=== PATIENT | male | born 1965 | race Caucasian/White ===

== ENCOUNTER 2021-04-17 07:46 | Day surgery (SDC) | payer BC ==
[2021-04-17] MEDS ORDERED: cefOXitin 2 GM in Premix Bag 1 BAG IV ONE (08:24)
[2021-04-17] MEDS ORDERED: Acetaminophen 1,000 MG in Premix Bag 1 BAG IV ONE (08:26)
[2021-04-17] MEDS ORDERED: Pregabalin 75 MG Cap PO ONE (08:26)
[2021-04-17] MEDS ORDERED: Lactated Ringers 1,000 ML IV SCH (08:30)
[2021-04-17] MEDS ORDERED: Rocuronium Bromide 50 MG/5 ML Syringe ONE ×2 (09:21→12:05)
[2021-04-17] MEDS ORDERED: Lidocaine 2% 5 ML SDV ONE (09:21)
[2021-04-17] MEDS ORDERED: Propofol 200 MG/20 ML SDV ONE (09:21)
[2021-04-17] MEDS ORDERED: Sugammadex Sodium 200 MG/2 ML VIAL ONE (09:21)
[2021-04-17] MEDS ORDERED: fentaNYL 100 MCG/2 ML SDV ONE (09:21)
[2021-04-17] MEDS ORDERED: Ondansetron 4 MG/2 ML SDV ONE (09:21)
[2021-04-17] MEDS ORDERED: Midazolam 1 MG/ML 2 ML SDV ONE (09:21)
[2021-04-17] MEDS ORDERED: Dexamethasone 4 MG/ML 5 ML MDV ONE (09:21)
[2021-04-17] MEDS ORDERED: Octyl 2-Cyanoacrylate 1 Tube ONE (09:28)
[2021-04-17] MEDS ORDERED: Bupivacaine 0.5% 10 ML SDV ONE (09:28)
--- NOTE | 2021-04-17 09:38 | PCM.PREANE ---
Preanesthetic Assessment - Procedure Proposed Procedure: Bhupinder Inguinal Hernia repair - Anesthesia/Transfusion/Family Hx Anesthesia History: Prior Anesthesia Without Reaction Family History of Anesthesia Reaction: No Transfusion History: No Prior Transfusion(s) - Review of Systems General: No Symptoms Pulmonary: No Symptoms (Quit smoking 2001) Cardiovascular: No Symptoms (HLD, HTN, CAD s/p CABG, S/P AO valvle replace) Gastrointestinal: No Symptoms (GERD well controlled) Neurological: No Symptoms Other: Reports: None - Physical Assessment NPO Status Date: 04/16/21 NPO Status Time: 07:30 (Solids, >8hr Liq) Height: 5 ft 9 in Weight: 93.894 kg (Obesity) ASA Class: 2 Mental Status: Alert & Oriented x3 Airway Class: Mallampati = 2 Dentition: Reports: Missing Tooth/Teeth Thyro-Mental Finger Breadths: 3 Mouth Opening Finger Breadths: 3 ROM/Head Extension: Full Lungs: Clear to Auscultation, Normal Respiratory Effort Cardiovascular: Regular Rate, Regular Rhythm - Allergies Allergies/Adverse Reactions: Allergies Allergy/AdvReac Type Severity Reaction Status Date / Time No Known Allergies Allergy Verified 04/11/21 09:52 - Acknowledgements Anesthesia Type Planned: General Anesthesia Pt an Appropriate Candidate for the Planned Anesthesia: Yes Alternatives and Risks of Anesthesia Discussed w Pt/Guardian: Yes Pt/Guardian Understands and Agrees with Anesthesia Plan: Yes PreAnesthesia Questionnaire HEENT History: Reports: Other (See Below) Other HEENT History: wears glasses Cardiovascular History: Reports: High Cholesterol Respiratory History: Reports: None Gastrointestinal History: Reports: None Genitourinary History: Reports: None Musculoskeletal History: Reports: None Neurological History: Reports: None Psychiatric History: Reports: None Endocrine/Metabolic History: Reports: None Hematologic History: Reports: None Immunologic History: Reports: None Oncologic (Cancer) History: Reports: None Dermatologic History: Reports: None - Past Surgical History Head Surgeries/Procedures: Reports: None HEENT Surgical History: Reports: None Cardiovascular Surgical History: Reports: None Respiratory Surgical History: Reports: None GI Surgical History: Reports: Appendectomy Male Surgical History: Reports: None Endocrine Surgical History: Reports: None Neurological Surgical History: Reports: None Musculoskeletal Surgical History: Reports: None Oncologic Surgical History: Reports: None Dermatological Surgical History: Reports: None - SUBSTANCE USE Tobacco Use Status *Q: Never Tobacco User Recreational Drug Use History: No - HOME MEDS Home Medications: Home Meds Rosuvastatin [Crestor] 20 mg PO DAILY 04/11/21 [History] - CURRENT (IN HOUSE) MEDS Current Meds: Current Medications Lactated Ringer's (Ringers, Lactated) 1,000 mls @ 125 mls/hr IV ASDIRECTED ASMITA Discontinued Medications Dexamethasone (Dexamethasone 4 Mg/Ml 5 Ml Mdv) Confirm Administered Dose 20 mg .ROUTE .STK-MED ONE Stop: 04/17/21 09:22 Fentanyl (Fentanyl 100 Mcg/2 Ml Sdv) Confirm Administered Dose 100 mcg .ROUTE .STK-MED ONE Stop: 04/17/21 09:22 Cefoxitin Sodium 2 gm/ Premix 50 mls @ 100 mls/hr IV ONETIME ONE Stop: 04/17/21 08:53 Acetaminophen 1,000 mg/ Premix 100 mls @ 400 mls/hr IV ONCALL ONE Stop: 04/17/21 08:40 Lidocaine (Lidocaine 2% 5 Ml Sdv) Confirm Administered Dose 5 ml .ROUTE .STK-MED ONE Stop: 04/17/21 09:22 Midazolam HCl (Midazolam 1 Mg/Ml 2 Ml Sdv) Confirm Administered Dose 2 mg .ROUTE .STK-MED ONE Stop: 04/17/21 09:22 Ondansetron HCl (Ondansetron 4 Mg/2 Ml Sdv) Confirm Administered Dose 4 mg .ROUTE .STK-MED ONE Stop: 04/17/21 09:22 Pregabalin (Pregabalin 75 Mg Cap) 150 mg PO ONETIME ONE Stop: 04/17/21 08:27 Propofol (Propofol 200 Mg/20 Ml Sdv) Confirm Administered Dose 200 mg .ROUTE .STK-MED ONE Stop: 04/17/21 09:22 Rocuronium [place] (Rocuronium [place] 50 Mg/5 Ml Syringe) Confirm Administered Dose 50 mg .ROUTE .STK-MED ONE Stop: 04/17/21 09:22 Sugammadex Sodium (Sugammadex Sodium 200 Mg/2 Ml Vial) Confirm Administered Dose 200 mg .ROUTE .STK-MED ONE Stop: 04/17/21 09:22
[2021-04-17] MEDS ORDERED: Naloxone 0.4 MG/ML SDV IVPUSH PRN (10:24)
[2021-04-17] MEDS ORDERED: Metoclopramide 10 MG/2 ML SDV IVPUSH PRN (10:24)
[2021-04-17] MEDS ORDERED: Albuterol 0.083% 2.5 MG/3 ML Neb Soln NEB PRN (10:24)
[2021-04-17] MEDS ORDERED: Morphine 2 MG/ML SYRINGE IVPUSH PRN (10:24)
[2021-04-17] MEDS ORDERED: fentaNYL 100 MCG/2 ML SDV IVPUSH PRN (10:24)
[2021-04-17] MEDS ORDERED: Ondansetron 4 MG/2 ML SDV IVPUSH PRN (10:24)
[2021-04-17] MEDS ORDERED: HYDROmorphone 1 MG/ML Syringe IVPUSH PRN (10:24)
--- NOTE | 2021-04-17 10:24 | PCM.PREANE ---
Preanesthetic Assessment - Procedure Proposed Procedure: Bhupinder Inguinal Hernia Repair - Anesthesia/Transfusion/Family Hx Anesthesia History: Prior Anesthesia Without Reaction Family History of Anesthesia Reaction: No Transfusion History: No Prior Transfusion(s) - Review of Systems General: No Symptoms Pulmonary: No Symptoms Cardiovascular: No Symptoms (HLD) Gastrointestinal: No Symptoms Neurological: No Symptoms Other: Reports: None - Physical Assessment NPO Status Date: 04/16/21 NPO Status Time: 22:30 Height: 5 ft 9 in Weight: 93.894 kg (Obesity) Mental Status: Alert & Oriented x3 Airway Class: Mallampati = 3 Dentition: Reports: Normal Dentition Thyro-Mental Finger Breadths: 3 Mouth Opening Finger Breadths: 3 ROM/Head Extension: Full Lungs: Clear to Auscultation, Normal Respiratory Effort Cardiovascular: Regular Rate, Regular Rhythm - Lab Values: Laboratory Last Values SARS-CoV-2 RNA (KEE) NEGATIVE (NEGATIVE) 04/17/21 07:50 - Allergies Allergies/Adverse Reactions: Allergies Allergy/AdvReac Type Severity Reaction Status Date / Time No Known Allergies Allergy Verified 04/17/21 10:19 - Acknowledgements Anesthesia Type Planned: General Anesthesia Pt an Appropriate Candidate for the Planned Anesthesia: Yes Alternatives and Risks of Anesthesia Discussed w Pt/Guardian: Yes Pt/Guardian Understands and Agrees with Anesthesia Plan: Yes PreAnesthesia Questionnaire HEENT History: Reports: Other (See Below) Other HEENT History: wears glasses Cardiovascular History: Reports: High Cholesterol Respiratory History: Reports: None Gastrointestinal History: Reports: None Genitourinary History: Reports: None Musculoskeletal History: Reports: None Neurological History: Reports: None Psychiatric History: Reports: None Endocrine/Metabolic History: Reports: None Hematologic History: Reports: None Immunologic History: Reports: None Oncologic (Cancer) History: Reports: None Dermatologic History: Reports: None - Past Surgical History Head Surgeries/Procedures: Reports: None HEENT Surgical History: Reports: None Cardiovascular Surgical History: Reports: None Respiratory Surgical History: Reports: None GI Surgical History: Reports: Appendectomy Male Surgical History: Reports: None Endocrine Surgical History: Reports: None Neurological Surgical History: Reports: None Musculoskeletal Surgical History: Reports: None Oncologic Surgical History: Reports: None Dermatological Surgical History: Reports: None - SUBSTANCE USE Tobacco Use Status *Q: Never Tobacco User Recreational Drug Use History: No - HOME MEDS Home Medications: Home Meds Rosuvastatin [Crestor] 20 mg PO DAILY 04/11/21 [History] - CURRENT (IN HOUSE) MEDS Current Meds: Current Medications Lactated Ringer's (Ringers, Lactated) 1,000 mls @ 125 mls/hr IV ASDIRECTED [facility] Last Admin: 04/17/21 10:17 Dose: 125 mls/hr Documented by: Discontinued Medications Bupivacaine HCl (Bupivacaine 0.5% 10 Ml Sdv) Confirm Administered Dose 10 ml .ROUTE .STK-MED ONE Stop: 04/17/21 09:29 Dexamethasone (Dexamethasone 4 Mg/Ml 5 Ml Mdv) Confirm Administered Dose 20 mg .ROUTE .STK-MED ONE Stop: 04/17/21 09:22 Fentanyl (Fentanyl 100 Mcg/2 Ml Sdv) Confirm Administered Dose 100 mcg .ROUTE .STK-MED ONE Stop: 04/17/21 09:22 Cefoxitin Sodium 2 gm/ Premix 50 mls @ 100 mls/hr IV ONETIME ONE Stop: 04/17/21 08:53 Acetaminophen 1,000 mg/ Premix 100 mls @ 400 mls/hr IV ONCALL ONE Stop: 04/17/21 08:40 Last Admin: 04/17/21 10:17 Dose: 400 mls/hr Documented by: Lidocaine (Lidocaine 2% 5 Ml Sdv) Confirm Administered Dose 5 ml .ROUTE .STK-MED ONE Stop: 04/17/21 09:22 Midazolam HCl (Midazolam 1 Mg/Ml 2 Ml Sdv) Confirm Administered Dose 2 mg .ROUTE .STK-MED ONE Stop: 04/17/21 09:22 Octyl Cyanoacrylate (Octyl 2-Cyanoacrylate 1 Tube) Confirm Administered Dose 1 applic .ROUTE .STK-MED ONE Stop: 04/17/21 09:29 Ondansetron HCl (Ondansetron 4 Mg/2 Ml Sdv) Confirm Administered Dose 4 mg .ROUTE .STK-MED ONE Stop: 04/17/21 09:22 Pregabalin (Pregabalin 75 Mg Cap) 150 mg PO ONETIME ONE Stop: 04/17/21 08:27 Last Admin: 04/17/21 10:18 Dose: 150 mg Documented by: Propofol (Propofol 200 Mg/20 Ml Sdv) Confirm Administered Dose 200 mg .ROUTE .STK-MED ONE Stop: 04/17/21 09:22 Rocuronium [place] (Rocuronium [place] 50 Mg/5 Ml Syringe) Confirm Administered Dose 50 mg .ROUTE .STK-MED ONE Stop: 04/17/21 09:22 Sugammadex Sodium (Sugammadex Sodium 200 Mg/2 Ml Vial) Confirm Administered Dose 200 mg .ROUTE .STK-MED ONE Stop: 04/17/21 09:22
[2021-04-17] MEDS ORDERED: cefOXitin 100 ML ONE (10:42)
[2021-04-17] MEDS ORDERED: HYDROmorphone 2 MG/ML Syringe ONE (11:27)
[2021-04-17] MEDS ORDERED: ePHEDrine 50 MG/ML SDV ONE (12:22)
[2021-04-17] MEDS ORDERED: Sodium Chloride 0.9% 20 ML ONE (12:22)
[2021-04-17] MEDS ORDERED: Ketorolac 30 MG/ML SDV ONE (12:51)
--- NOTE | 2021-04-17 13:01 | PCM.OPNOTE ---
- General Post-Op/Procedure Note Date of Surgery/Procedure: 04/17/21 Operative Procedure(s): bilateral laparoscopic repair of inguinal hernias Findings: Indirect inguinal hernia and lipoma on the right Small indirect and direct inguinal hernia on the left dictation number [id number] Pre Op Diagnosis: bilateral inguinal hernias Post-Op Diagnosis: Indirect inguinal hernia and lipoma on the right. Small indirect and direct inguinal hernia on the left Anesthesia Technique: MAC Primary Surgeon: Umesh Anderson Pathology: none EBL in mLs: 5 Complications: None Condition: Good
--- NOTE | 2021-04-17 13:23 | PCM.POSTAN ---
POST ANESTHESIA ASSESSMENT - MENTAL STATUS Mental Status: Alert, Oriented - VITAL SIGNS Vital Signs: Last Vital Signs Temp 97.2 F 04/17/21 10:25 Pulse 60 04/17/21 10:25 Resp 16 04/17/21 10:25 BP 130/80 04/17/21 10:25 Pulse Ox 97 04/17/21 10:25 - RESPIRATORY Respiratory Status: Respiratory Rate WNL, Airway Patent, O2 Saturation Stable - CARDIOVASCULAR CV Status: Pulse Rate WNL, Blood Pressure Stable - GASTROINTESTINAL GI Status: No Symptoms - PAIN Pain Score: 3 - POST OP HYDRATION Hydration Status: Adequate & Stable
--- NOTE | 2021-04-17 13:47 | PCM48HPAN ---
Post Anesthesia Note - EVALUATION WITHIN 48HRS OF ANESTHETIC Vital Signs in Normal Range: Yes Patient Participated in Evaluation: Yes Respiratory Function Stable: Yes Airway Patent: Yes Cardiovascular Function Stable: Yes Hydration Status Stable: Yes Pain Control Satisfactory: Yes Nausea and Vomiting Control Satisfactory: Yes Mental Status Recovered: Yes Vital Signs: Last Vital Signs Temp 97.2 F 04/17/21 10:25 Pulse 87 04/17/21 13:43 Resp 8 L 04/17/21 13:43 BP 111/70 04/17/21 13:43 Pulse Ox 94 L 04/17/21 13:43 - COMMENTS/OBSERVATIONS Free Text/Narrative:: Pt doing well post-op. VSS. No apparent anesthetic complications. Dr. Ortiz Woods
--- NOTE | 2021-04-17 20:41 | OR ---
SURGEON: JOHN SIMON MD DATE OF PROCEDURE: 04/17/2021 PREOPERATIVE DIAGNOSIS: Bilateral inguinal hernias. POSTOPERATIVE DIAGNOSES: 1. An indirect right inguinal hernia with lipoma. 2. Small left indirect and direct inguinal hernia on the left. PROCEDURE PERFORMED: Bilateral laparoscopic inguinal hernia repair. PRIMARY SURGEON: John Simon MD ANESTHESIA: General. SPECIMENS: None. ESTIMATED BLOOD LOSS: 5 mL. COMPLICATIONS: None. REASON FOR PROCEDURE: The patient is a pleasant 55-year-old gentleman who for the past 5 months had noticed a right inguinal hernia. He says he just kind of started noticing it, does not remember any incident that started it. It is causing him some pain and discomfort, especially when he is busy working. He has always been able to reduce it. He does have some pain that radiates down his right leg and groin and numbness. He has had that for a couple of years. He said this is actually nerve impingement in the hip, and he is going to have surgery for this in June. On examination, he was actually found to have a small left inguinal hernia. The patient elected to have all them repaired. I did go over with the patient the risks, goals, and alternatives to procedure. Risks include, but not limited to bleeding, infection, mesh infection, recurrence, injury to underlying structures such as spermatic cord, a complete testicle damage or loss, urinary retention, chronic pain, and nerve impingement. The patient understands, wished to proceed. OPERATIVE NARRATIVE: The patient was brought back to the OR. He was prepped and draped in the usual sterile fashion. SCDs placed. Norman catheter placed. Preoperative antibiotics given and anesthesia was provided by the anesthesia team. After time-out was performed, an infraumbilical incision was made. This was carried down to the external rectus sheath. A small incision was made in the fascia and underlying rectus muscle was atraumatically split. To the posterior rectus sheath, now balloon dissecting system was placed in and inflated under direct visualization. Balloon dissecting system was removed. Sarbjit trocar was placed and insufflation began. The preperitoneal pneumo was established. Now, two 5 mm trocars were placed under direct visualization in the midline. We focused on the right side since this was the symptomatic side. Did clear the pubic tubercle, then go to the right lateral wall. The patient did have moderate-sized hernia sac and accompanying lipoma. During dissection, did get a small rent in the hernia sac. This was closed with a 5 mm clip qi specialist. We will make sure nothing else was above. Once the hernia was completely reduced, did get to make sure there was good peritoneal reflection. Now, a large 3DMax MID E Bard mesh was placed. It was held in place with absorbable tacks, 2 in the periosteum of Juan ligament and one laterally, it laid nice and flat, and the hernia site lipoma and peritoneal reflection were all placed above the mesh. Now, attention was brought to the left side. Rest of the pubic tubercle was cleared and now left wall was cleared. There was a small indirect hernia sac, it was carefully dissected out the spermatic cord with good effect. The patient also had what looked to be beginning of a small direct inguinal hernia. This site is also reduced. Now, a large right 3DMax MID E mesh was placed. It laid nice and flat and secured twice in the periosteum of Juan ligament, it did lay nice and flat underneath the peritoneal reflection. Now, the peritoneum pneumo was released and nothing seemed to slide underneath the mesh on either side, it was really established. Again, the mesh was laid over nice and in good position. There was good hemostasis. Now, pneumoperitoneum was released and all the trocars removed. The anterior rectus sheath was closed with 0 Vicryl [id number]. The rest of the local was injected into the trocar sites and then closed with 4-0 Monocryl and Dermabond. The patient was transferred to recovery room in stable condition, and sponge and needle counts were correct and both testicles were in the scrotum. MARLYS / DILCIA /[id number]
== END 2021-04-17 15:20 | disposition home or self-care (01) ==
LOC: MW.SDS 07:46
PROVIDERS: ATTEND Surgery
DX: K40.90 Unilateral inguinal hernia, without obstruction or gangrene, not specified as recurrent (principal); E78.00 Pure hypercholesterolemia, unspecified; Z79.899 Other long term (current) drug therapy; Z01.812 Encounter for preprocedural laboratory examination; Z20.822 Contact with and (suspected) exposure to COVID-19
CPT/HCPCS: 49650; 87635; A9270; C1781; J0131; J0694; J1100; J1170; J1885; J2250; J2704; J3490; J7120; J2405; J3010; U0002